=== PATIENT | male | born 1965 | race Caucasian/White ===

== ENCOUNTER 2017-03-22 00:39 | Inpatient (IN) ==
[2017-03-22] MEDS ORDERED: NS 1,000 ML IV ONE (01:39)
[2017-03-22 01:44] LABS: MANUAL DIFF NEEDED? NO
[2017-03-22 01:47] LABS: BASO% 0.2 % (0.0-0.8); EOS# 0.49 X1000 (0.0-0.7); EOS% 3.2 % (0.0-10.0); HEMATOCRIT 41.3 % (42.0-52.0); IMM GRAN# 0.03 X1000 (0.0-0.04); IMM GRAN% 0.2 % (0.0-0.5); LYMPH# 3.37 X1000 (1.2-3.4); LYMPH% 22.1 % (20.5-51.1); MCH 31.4 PG (27-31); MCHC 36.3 g/dL (33-37); MCV 86.4 FL (81-99); MONO# 0.94 X1000 (0.11-0.59); MONO% 6.2 % (1.7-9.3); MPV 10.6 FL (7.4-10.4); NEUT% 68.1 % (42.2-75.2); PLT 277 X1000 (130-400); RBC 4.78 XMIL (4.7-6.1)
[2017-03-22 01:56] LABS: INR 0.98; PROTIME 10.3 Seconds (9.2-11.7)
[2017-03-22 02:09] LABS: URINE CULTURE NEEDED? NO; URINE MICRO REVIEW NEEDED? NO; URINE SOURCE CLEAN CATCH
[2017-03-22 02:15] LABS: BILIRUBIN URINE NEGATIVE (NEGATIVE); BLOOD URINE SMALL (NEGATIVE); COLOR YELLOW; GLUCOSE URINE NEGATIVE (NEGATIVE); LEUKOCYTES URINE NEGATIVE (NEGATIVE); NITRITE URINE NEGATIVE (NEGATIVE); PH URINE 5.5; PROTEIN URINE TRACE mg/dL (NEGATIVE); SP GRAVITY URINE 1.017; TURBIDITY URINE CLEAR (CLEAR); UR EPITHELIAL CELLS <10 /HPF (<10); URINE BACTERIA NEGATIVE /HPF; URINE RBC <10 /HPF (<10); URINE WBC <10 /HPF (<10); UROBILINOGEN URINE NORMAL (NORMAL)
[2017-03-22 02:24] LABS: UR AMPHETAMINES QUAL NONE DETECTED (NONE DETECT); UR BARBITUATES QUAL NONE DETECTED (NONE DETECT); UR BENZODIAZEPIN QUAL NONE DETECTED (NONE DETECT); UR CANNABINOIDS QUAL NONE DETECTED (NONE DETECT); UR COCAINE QUAL NONE DETECTED (NONE DETECT); UR METHADONE QUAL NONE DETECTED (NONE DETECT); UR OPIATES QUAL NONE DETECTED (NONE DETECT); UR OXYCODONE QUAL NONE DETECTED (NONE DETECT); UR PCP QUAL NONE DETECTED (NONE DETECT)
[2017-03-22 02:30] LABS: AGAP 14; ALKALINE PHOSPHATASE 115 U/L (32-122); BUN 10 mg/dL (8-22); CALCIUM 9.3 mg/dL (8.8-10.2); CHLORIDE 97 mmol/L (98-107); COSMO 266; GOT 14 U/L (10-34); GPT 12 U/L (10-44); LIPASE 719 U/L (13-60); SODIUM 133 mmol/L (136-145); TCO2 22 mmol/L (25-35); TOTAL BILIRUBIN 0.15 mg/dL (0.20-1.00); TOTAL PROTEIN 7.6 g/dL (6.3-8.3)
[2017-03-22] MEDS ORDERED: MORPHINE IV ONE ×3 (03:10→05:11)
--- NOTE | 2017-03-22 05:21 | EKG Report ---
Test Performed on : 03/22/2017 02:09:54 AM Test Reason : EPIGASTRIC PAIN Blood Pressure : / mmHG Vent. Rate : 057 BPM Atrial Rate : 057 BPM P-R Int : 150 ms QRS Dur : 088 ms QT Int : 418 ms P-R-T Axes : 063 062 058 degrees QTc Int : 406 ms Sinus bradycardia. Otherwise normal ECG No previous ECGs available Unconfirmed Result
--- NOTE | 2017-03-22 06:07 | Diag Imaging Result Doc PS360 ---
EXAM: CT ABD/PELVIS W/ IV CONT ONLY HISTORY: midepigastric pain, tarry stools TECHNIQUE: CT abdomen and pelvis with intravenous contrast. Dose reduction protocol. COMPARISON: None. FINDINGS: The gallbladder has been removed. Normal liver, spleen, adrenal glands, and kidneys. No hydronephrosis. Normal aorta. There is mild edema/inflammation about the pancreatic head and the duodenum. No pancreatic calcifications. No pseudocysts. No bowel obstruction. The appendix has been removed. The urinary bladder is distended and is normal. Normal prostate. IMPRESSION: 1.Pancreatitis or duodenitis. 2.Cholecystectomy and appendectomy 3.A preliminary report was given at 4:01 AM Electronically signed by Martinez Escamilla 03/22/2017 6:05 AM
[2017-03-22] MEDS ORDERED: ZOFRAN IV PRN (06:12)
[2017-03-22] MEDS: NS 1,000 ML IV SCH ×3 (09:34→17:34)
[2017-03-22] MEDS ORDERED: MAALOX PLUS LIQUID PO PRN (17:49)
[2017-03-22 17:51] LABS: HDL 25 mg/dL (35-55); LDL 124 mg/dL; TRIGLYCERIDES 115 mg/dL (39-160); VLDL 23 mg/dL
[2017-03-22] MEDS: MORPHINE IV PRN (18:58)
[2017-03-22] MEDS: FLOMAX PO SCH (22:05)
[2017-03-22] MEDS: ZOLOFT PO SCH (22:06)
[2017-03-23] MEDS: NS 1,000 ML IV SCH ×4 (01:42→22:41)
[2017-03-23 05:44] LABS: MANUAL DIFF NEEDED? NO
[2017-03-23 05:54] LABS: BASO% 0.4 % (0.0-0.8); EOS# 0.33 X1000 (0.0-0.7); EOS% 4.6 % (0.0-10.0); HEMATOCRIT 38.3 % (42.0-52.0); HEMOGLOBIN 13.4 g/dL (14.0-18.0); LYMPH# 2.49 X1000 (1.2-3.4); LYMPH% 34.6 % (20.5-51.1); MCV 88.7 FL (81-99); MPV 10.7 FL (7.4-10.4); NEUT% 53.4 % (42.2-75.2); PLT 235 X1000 (130-400); RBC 4.32 XMIL (4.7-6.1)
[2017-03-23 06:27] LABS: AGAP 15; ALBUMIN 3.5 g/dL (3.5-5.0); ALKALINE PHOSPHATASE 206 U/L (32-122); AMYLASE 152 U/L (20-200); BUN 12 mg/dL (8-22); CALCIUM 8.3 mg/dL (8.8-10.2); CHLORIDE 104 mmol/L (98-107); COSMO 277; GOT 156 U/L (10-34); GPT 172 U/L (10-44); HDL 25 mg/dL (35-55); LDL 134 mg/dL; LIPASE 273 U/L (13-60); MAGNESIUM 1.8 mg/dL (1.5-2.7); POTASSIUM 3.9 mmol/L (3.5-5.1); SODIUM 140 mmol/L (136-145); TCO2 21 mmol/L (25-35); TOTAL BILIRUBIN 0.69 mg/dL (0.20-1.00); TRIGLYCERIDES 111 mg/dL (39-160); VLDL 22 mg/dL
[2017-03-23 06:35] LABS: FREE T4 1.36 ng/dL (0.93-1.70)
[2017-03-23] MEDS: ZOLOFT PO SCH (20:59)
[2017-03-23] MEDS: FLOMAX PO SCH (20:59)
[2017-03-24] MEDS: MORPHINE IV PRN (04:22)
[2017-03-24 06:34] LABS: AGAP 10; ALBUMIN 3.5 g/dL (3.5-5.0); ALKALINE PHOSPHATASE 174 U/L (32-122); AMYLASE 91 U/L (20-200); BUN 11 mg/dL (8-22); CALCIUM 8.3 mg/dL (8.8-10.2); CHLORIDE 108 mmol/L (98-107); COSMO 283; GOT 55 U/L (10-34); GPT 111 U/L (10-44); LIPASE 241 U/L (13-60); POTASSIUM 4.3 mmol/L (3.5-5.1); SODIUM 142 mmol/L (136-145); TCO2 24 mmol/L (25-35); TOTAL BILIRUBIN 0.39 mg/dL (0.20-1.00); TOTAL PROTEIN 5.7 g/dL (6.3-8.3)
[2017-03-24 07:32] VITALS: BP 128/70
[2017-03-25 12:37] LABS: HEPATITIS PROFILE ACUTE SEE COMMENTS
== END 2017-03-24 09:46 | disposition home or self-care (01) ==
LOC: ED 00:39 → SUATTDRO 05:52 → 4N 05:52
PROVIDERS: ATTEND Emergency Medicine